=== PATIENT | female | born 1995 | race Caucasian/White ===

== ENCOUNTER 2021-05-15 09:30 | Outpatient (CLI) | payer BC | END 2021-05-15 09:31 | disposition home or self-care (01) | LOC: CT 09:30 | PROVIDERS: ATTEND Student in an Organized Health Care Education/Training Program | DX: H91.8X9 Other specified hearing loss, unspecified ear (principal); J34.89 Other specified disorders of nose and nasal sinuses | CPT/HCPCS: 70480 ==

== ENCOUNTER 2025-02-15 14:51 | Outpatient (CLI) | payer BC | END 2025-02-15 14:52 | disposition home or self-care (01) | LOC: BICRAD 14:51 | PROVIDERS: ATTEND Family Medicine | DX: R51.9 Headache, unspecified (principal) | CPT/HCPCS: 72050 ==